=== PATIENT | male | born 1945 | race Caucasian/White ===

== ENCOUNTER → 2024-10-10 15:55 | Outpatient (REF) | payer OTHER, SELFPAY ==
[2024-10-10 17:23] LABS: HDL Cholesterol 50 mg/dl; LDL Cholesterol, Calculated 50 mg/dl; Total Cholesterol 112 mg/dl (50-199); Triglyceride 63 mg/dl (10-149); Very Low Density Lipoprotein 12 mg/dl (0-30)
== END ==
LOC: REG 15:55
PROVIDERS: ATTENDING PHYSICIAN Nurse Practitioner; FAMILY PHYSICIAN Family Medicine
DX: E78.5 Hyperlipidemia, unspecified (principal)
CPT/HCPCS: 36415; 80061

== ENCOUNTER → 2024-10-17 11:38 | Outpatient (REF) | payer OTHER, SELFPAY | LOC: DHCBC/DCA 11:38 | PROVIDERS: ATTENDING PHYSICIAN Nurse Practitioner; FAMILY PHYSICIAN Family Medicine | DX: R07.89 Other chest pain (principal) | CPT/HCPCS: 78452; 93017; A9500; J2785 ==

== ENCOUNTER → 2025-03-07 15:31 | Outpatient (REF) | payer OTHER, SELFPAY ==
[2025-03-07 17:16] LABS: PSA, Total - Diagnostic 3.04 ng/ml (0.0-4.0)
== END ==
LOC: REG 15:31
PROVIDERS: ATTENDING PHYSICIAN Specialist; FAMILY PHYSICIAN Family Medicine
DX: R97.20 Elevated prostate specific antigen [PSA] (principal)
CPT/HCPCS: 36415; 84153